=== PATIENT | female | born 1960 | race Caucasian/White ===

== ENCOUNTER 2018-12-05 08:33 | Outpatient (CLI) | payer OTHER ==
[~2018-12-05 08:33] MED LIST: ASA81 MG; ATENOLOL50 MG; AVAPRO300 MG; CARDURA1 MG; HYDROCHLOROTHIA25 GM MC; IBERSARTAN PO; INTESTINEX1 CA1 PO; LASIX20 MG; METFORMIN HCL500 MG; PERCOCET 5/3251 TAB PO; PRILOSEC20 MG PO; SYNTHROID75 MCG
== END 2018-12-05 17:00 | disposition home or self-care (01) ==
LOC: TOM 08:33
DX: K43.2 Incisional hernia without obstruction or gangrene (principal)

== ENCOUNTER 2021-03-29 07:40 | Outpatient (CLI) | payer OTHER | END 2021-03-29 07:42 | disposition home or self-care (01) | LOC: SONOGRAMA 07:40 | PROVIDERS: ATTEND Pathology Anatomic Pathology & Clinical Pathology | DX: E04.1 Nontoxic single thyroid nodule (principal) ==

== ENCOUNTER 2023-10-19 06:45 | Emergency (ER) | payer OTHER ==
[~2023-10-19] VITALS: Ht 149.9 cm; Wt 92.1 kg
[2023-10-19] MEDS ORDERED: CANDESARTAN CIL32 MG PO (07:19)
[2023-10-19] MEDS ORDERED: METFORMIN HCL500 MG PO (07:19)
[2023-10-19] MEDS ORDERED: ATORVASTATIN CA10 MG PO (07:19)
[2023-10-19] MEDS ORDERED: TOPROL XL50 M1 PO (07:20)
[2023-10-19] MEDS ORDERED: ALENDRONATE SOD70 MG PO (07:20)
[2023-10-19] MEDS ORDERED: MEPERIDINE HCL/PF 50 MG/ML VIAL IM STA (07:47)
[2023-10-19] MEDS ORDERED: PROMETHAZINE HCL 50 MG/ML AMPUL IM STA (07:47)
[2023-10-19] MEDS ORDERED: 0.9 % SODIUM CHLORIDE 1,000 ML IV ONE (08:00)
[2023-10-19] MEDS ORDERED: PROMETHAZINE HCL 50 MG/ML AMPUL IM ONE (08:05)
[2023-10-19] MEDS ORDERED: BARIUM SULFATE 450 ML ORAL.SUSP PO ONE (08:19)
[2023-10-19 08:42] LABS: HEMATOCRIT 38.4 % (36.0-45.00); HEMOGLOBIN 13.3 g/dL (12.0-15.00); MEAN CELL VOLUME 86.8 fL (80.00-100.00); MEAN CORPUSCULAR HEMOGLOBIN 30.1 pg (27.00-32.0); MEAN CORPUSCULAR HGB CONC 34.6 g/dl (32.0-36.0); PLATELET COUNT 286 K/uL (150-450); RED BLOOD COUNT 4.42 M/uL (4.00-6.00); RED CELL DISTRIBUTION WIDTH 14.3 % (11.5-14.5)
[2023-10-19 08:56] LABS: PH,URINE 6.5 (5.0-8.0); URINE APPEARANCE Clear; URINE BILIRRUBIN Negative (NEGATIVE); URINE BLOOD Negative; URINE COLOR Yellow; URINE GLUCOSE Negative (NEGATIVE); URINE KETONE Negative (NEGATIVE); URINE LEUKOCYTE Small; URINE NITRATE Negative; URINE PROTEIN Negative (NEGATIVE); URINE UROBILINOGEN 0.2 E.U./dl
[2023-10-19 08:58] LABS: URINE BACTERIA 84.3 uL (0.0-1933); URINE EPITHELIAL CELLS 27.3 uL (0.0-38.8); URINE WBC 69.3 uL (0.0-23.2)
[2023-10-19 09:02] LABS: ALBUMIN 3.4 gm/dL (3.4-5.0); BILIRUBIN TOTAL 0.7 mg/dL (0.3-1.2); BILIRUBIN,CONJUGATED 0.2 mg/dL (0.0-0.2); BILIRUBIN,UNCONJUGATED 0.5 mg/dL (0.0-0.6); CALCIUM 9.1 mg/dL (8.5-10.1); CREATININE SERUM 0.87 mg/dL (0.55-1.02); GFR 65.76; GLOBULINA 4.1 G/DL (2.4-3.5); INR 0.98; PARTIAL THROMBOPLASTIN TIME 27.1 SECONDS (22.0-34.0); POTASSIUM 4.24 mEq/L (3.5-5.1); PROTHROMBIN TIME 10.3 SECONDS (9.0-11.5); TOTAL PROTEIN 7.5 gm/dL (6.4-8.2)
[2023-10-19 09:03] LABS: URINE CAST 1.06 uL (0.0-1.40)
== END 2023-10-19 14:47 | disposition home or self-care (01) ==
LOC: ER 06:46
PROVIDERS: General Practice
DX: R10.84 Generalized abdominal pain (principal)